=== PATIENT | female | born 1990 | race Hispanic/Latino ===

== ENCOUNTER 2020-05-15 18:20 | Inpatient (IN) | payer BC, OTHER ==
[~2020-05-15] VITALS: Ht 152.4 cm; Wt 70.3 kg
[2020-05-15 19:09] LABS: APPEARANCE,URINE CLOUDY (CLEAR); BILIRUBIN,URINE NEGATIVE (NEGATIVE); COLOR,URINE YELLOW (YELLOW); GLUCOSE, URINE (UA) NEGATIVE (NEGATIVE); KETONES,URINE >=80 mg/dL (NEGATIVE); LEUKOCYTE ESTERASE ,URINE SMALL (NEGATIVE); NITRATE,URINE NEGATIVE (NEGATIVE); OCCULT BLOOD,URINE MODERATE (NEGATIVE); PH,URINE 6.5 (5.0-8.0); PROTEIN,URINE NEGATIVE (NEGATIVE); UROBILINOGEN,URINE 0.2 mg/dL (0.2-1.0)
[2020-05-15] MEDS ORDERED: LACTATED RINGERS 1000ML 1,000 ML IV ONE (19:24)
[2020-05-15 19:26] LABS: HEMATOCRIT 39.8 % (36-48); MEAN CORPUSCULAR HEMOGLOBIN 32.1 pg (27.0-33.0); MEAN CORPUSCULAR HGB CONC 33.9 g/dL (32.0-36.0); MEAN CORPUSCULAR VOLUME 94.5 fL (79-99); RED BLOOD CELL COUNT(AUTO) 4.21 MIL/uL (4.00-5.50); RED CELL DISTRIBUTION WIDTH 13.5 % (11.0-15.5); WHITE BLOOD COUNT (AUTO) 19.2 K/uL (4.8-10.8)
[2020-05-15] MEDS ORDERED: LACTATED RINGERS 1000ML 1,000 ML IV SCH ×2 (19:30→20:45)
[2020-05-15] MEDS ORDERED: NALOXONE HCL 0.4 MG/1 ML ML IV PRN (19:30)
[2020-05-15] MEDS ORDERED: EPHEDRINE SULFATE 50 MG/ML AMPULE IVP PRN (19:30)
[2020-05-15] MEDS ORDERED: OXYTOCIN-LR 20 UNITS/1000 ML 1,000 ML IV SCH (19:30)
[2020-05-15] MEDS ORDERED: ROPIVACAINE 0.2% 100ML VIAL 100 ML EP SCH (19:30)
[2020-05-15] MEDS ORDERED: LACTATED RINGERS 1000ML 1,000 ML IV PRN (19:30)
[2020-05-15] MEDS ORDERED: LACTATED RINGERS 500 ML 500 ML IV PRN (19:30)
[2020-05-15 19:31] LABS: BACTERIA,URINE Moderate /HPF (None Seen); RBC,URINE 0-1 /HPF (0-1); SQUAMOUS EPITHELIAL CELL,UR Moderate /HPF (0-2)
[2020-05-15] MEDS ORDERED: FENTANYL CITRATE PF 50 MCG/1 ML 2ML VIAL ONE ×2 (19:40→21:24)
[2020-05-15] MEDS ORDERED: AMPICILLIN 2GM+NS 100ML 100 ML IV ONE (19:40)
[2020-05-15] MEDS ORDERED: AMPICILLIN 2GM+NS 100ML 100 ML IV SCH (19:45)
[2020-05-15] MEDS ORDERED: CEFAZOLIN SODIUM 1 GM VIAL ONE (20:45)
[2020-05-15] MEDS ORDERED: CEFAZOLIN SODIUM 1 GM VIAL IVP PRN (20:45)
[2020-05-15] MEDS ORDERED: CALDOLOR 800MG+NS 250ML 250 ML IV PRN (20:45)
[2020-05-15] MEDS ORDERED: LIDOCAINE 2%-EPI 1:200,000 20 ML VIAL IJ ONE (20:58)
[2020-05-15] MEDS ORDERED: ONDANSETRON 4MG INJ ONE (21:18)
[2020-05-15] MEDS ORDERED: OXYTOCIN 10 USP UNITS/ML ONE (21:19)
[2020-05-15] MEDS ORDERED: MIDAZOLAM HCL 1 MG/ML 2ML VIAL ONE (21:26)
[2020-05-15] MEDS ORDERED: MORPHINE PF 100MG/10ML AMP IV ONE (21:29)
[2020-05-15] MEDS ORDERED: DEXTROSE 5 %-0.45 % NACL 1,000 ML IV PRN (22:15)
[2020-05-15] MEDS ORDERED: 0.9%NACL 10ML VIAL IVP PRN (22:15)
[2020-05-15] MEDS ORDERED: OXYTOCIN-LR 20 UNITS/1000 ML 1,000 ML IV PRN (22:15)
[2020-05-15 23:40] LABS: HEMATOCRIT 36.5 % (36-48); MEAN CORPUSCULAR HEMOGLOBIN 31.9 pg (27.0-33.0); MEAN CORPUSCULAR HGB CONC 33.4 g/dL (32.0-36.0); MEAN CORPUSCULAR VOLUME 95.5 fL (79-99); RED BLOOD CELL COUNT(AUTO) 3.82 MIL/uL (4.00-5.50); RED CELL DISTRIBUTION WIDTH 13.3 % (11.0-15.5); WHITE BLOOD COUNT (AUTO) 20.7 K/uL (4.8-10.8)
[2020-05-15] MEDS: MEPERIDINE-PF 75 MG/ML SYG IM PRN (23:59)
[2020-05-15] MEDS: PROMETHAZINE HCL 25 MG/ML 1ML AMPULE IM PRN (23:59)
[2020-05-16] VITALS (8 sets, daily range): BP systolic 107–122; BP diastolic 59–72
[2020-05-16] MEDS: PROMETHAZINE HCL 25 MG/ML 1ML AMPULE IM PRN (05:59)
[2020-05-16] MEDS: MEPERIDINE-PF 75 MG/ML SYG IM PRN (05:59)
[2020-05-16] MEDS ORDERED: CALDOLOR 800MG+NS 250ML 250 ML IV SCH (06:15)
[2020-05-16 06:47] LABS: HEMATOCRIT 34.7 % (36-48); MEAN CORPUSCULAR HEMOGLOBIN 32.6 pg (27.0-33.0); MEAN CORPUSCULAR HGB CONC 34.3 g/dL (32.0-36.0); MEAN CORPUSCULAR VOLUME 95.1 fL (79-99); RED BLOOD CELL COUNT(AUTO) 3.65 MIL/uL (4.00-5.50); RED CELL DISTRIBUTION WIDTH 13.4 % (11.0-15.5); WHITE BLOOD COUNT (AUTO) 18.6 K/uL (4.8-10.8)
[2020-05-16 07:52] LABS: AMPHET/METH SCREEN,URINE NEGATIVE (NEGATIVE); BARBITURATE SCREEN, URINE NEGATIVE (NEGATIVE); BENZODIAZEPINES SCREEN,URINE NEGATIVE (NEGATIVE); CANNABINOID SCREEN,URINE NEGATIVE (NEGATIVE); COCAINE SCREEN,URINE NEGATIVE (NEGATIVE); OPIATE SCREEN,URINE NEGATIVE (NEGATIVE); PHENCYCLIDINE SCREEN,URINE NEGATIVE (NEGATIVE)
[2020-05-16] MEDS ORDERED: PREN1TAB80 PO (09:06)
[2020-05-16 10:00] LABS: RAPID PLASMA REAGIN NONREACTIVE (NONREACTIVE)
[2020-05-16] MEDS ORDERED: ACETAMINOPHEN WITH CODEINE 1 TAB TAB ONE (14:12)
[2020-05-16] MEDS ORDERED: LANOLIN 30GM OINTMENT TP PRN (14:15)
[2020-05-16] MEDS ORDERED: BISACODYL 10 MG SUPP.RECT RC PRN (14:15)
[2020-05-16] MEDS ORDERED: ACETAMINOPHEN 500 MG TABLET PO PRN (14:15)
[2020-05-16] MEDS ORDERED: HYDROCODONE/ACETAMINOPHEN 5/325 MG TAB PO PRN (14:15)
[2020-05-16] MEDS: ACETAMINOPHEN WITH CODEINE 1 TAB TAB PO PRN ×2 (14:24→19:52)
[2020-05-16] MEDS: DOCUSATE SODIUM 100 MG CAP PO SCH (21:45)
[2020-05-16] MEDS: SIMETHICONE 80 MG TAB.CHEW PO PRN (21:45)
[2020-05-16] MEDS: IBUPROFEN 600 MG TABLET PO PRN (21:46)
[2020-05-16] MEDS ORDERED: IBUPROFEN 800 MG TAB PO SCH (22:15)
[2020-05-17 03:55] VITALS: BP 113/61
[2020-05-17] MEDS: IBUPROFEN 600 MG TABLET PO PRN ×2 (04:15→11:04)
[2020-05-17] MEDS: ACETAMINOPHEN WITH CODEINE 1 TAB TAB PO PRN ×2 (06:50→15:59)
[2020-05-17 07:11] VITALS: BP 121/76
[2020-05-17] MEDS: DOCUSATE SODIUM 100 MG CAP PO SCH ×2 (08:23→20:57)
[2020-05-17] MEDS: SIMETHICONE 80 MG TAB.CHEW PO PRN ×2 (08:23→20:56)
[2020-05-17 11:26] VITALS: BP 120/68
[2020-05-17 13:14] LABS: HEPATITIS Bs ANTIGEN SCREEN P Negative (Negative)
[2020-05-17 17:10] VITALS: BP 116/82
[2020-05-17 19:32] VITALS: BP 134/83
[2020-05-17 23:25] VITALS: BP 130/80
[2020-05-18 03:47] VITALS: BP 127/78
[2020-05-18] MEDS: ACETAMINOPHEN WITH CODEINE 1 TAB TAB PO PRN ×2 (03:48→08:22)
[2020-05-18 07:16] VITALS: BP 119/74
[2020-05-18] MEDS: DOCUSATE SODIUM 100 MG CAP PO SCH (08:20)
[2020-05-18] MEDS: SIMETHICONE 80 MG TAB.CHEW PO PRN ×2 (08:20→12:03)
[2020-05-18 11:48] VITALS: BP 121/68
[2020-05-18] MEDS: IBUPROFEN 600 MG TABLET PO PRN (12:02)
== END 2020-05-18 13:05 | disposition home or self-care (01) | DRG 788 ==
LOC: EDH 18:20 → OBSVTOIN 18:21 → LDH 18:21 → WSH 05-16 08:45
PROVIDERS: ADMIT Specialist; ATTEND Specialist
PROC: 10D00Z1 Extraction of Products of Conception, Low, Open Approach (ICD-10-PCS; principal; 2020-05-15 20:46)
DX: O77.0 Labor and delivery complicated by meconium in amniotic fluid (principal); Z3A.38 38 weeks gestation of pregnancy; Z37.0 Single live birth; N73.6 Female pelvic peritoneal adhesions (postinfective); O69.81X0 Labor and delivery complicated by cord around neck, without compression, not applicable or unspecified; O99.62 Diseases of the digestive system complicating childbirth
CPT/HCPCS: 36415; 59510; 80305; 81001; 83605; 84443; 85027; 86592; 86701; 86850; 86900; 86901; 87088; 87340; 87390; 93005; A4314; A4344; G0378; J0290; J0690; J1741; J2175; J2250; J2274; J2405; J2550; J2590; J3010; J3490; J7042; J7120

== ENCOUNTER 2020-06-30 16:33 | Emergency (ER) | payer BC ==
[~2020-06-30 16:33] MED LIST: PREN1TAB80 PO
[2020-06-30 17:24] LABS: APPEARANCE,URINE Clear (CLEAR); BILIRUBIN,URINE Negative (NEGATIVE); COLOR,URINE Yellow (YELLOW); GLUCOSE, URINE (UA) Negative (NEGATIVE); KETONES,URINE Negative (NEGATIVE); LEUKOCYTE ESTERASE ,URINE Negative (NEGATIVE); NITRATE,URINE Negative (NEGATIVE); OCCULT BLOOD,URINE Trace (NEGATIVE); PH,URINE 5.5 (5.0-8.0); PROTEIN,URINE Negative (NEGATIVE)
[2020-06-30 17:26] LABS: HCG,QUAL RESULT NEGATIVE (NEGATIVE)
[2020-06-30 17:34] LABS: BACTERIA,URINE Rare /HPF (None Seen); RBC,URINE 0-1 /HPF (0-1); SQUAMOUS EPITHELIAL CELL,UR Few /HPF (0-2); WBC,URINE 0-1 /HPF (0-1)
[2020-06-30 17:47] LABS: BASOPHILS % (AUTO) 0.2 % (0.0-5.0); EOSINOPHILS % (AUTO) 0.6 % (0.0-8.0); HEMATOCRIT 43.2 % (36-48); LYMPHOCYTES % (AUTO) 18.5 % (21.0-51.0); MEAN CORPUSCULAR HEMOGLOBIN 30.7 pg (27.0-33.0); MEAN CORPUSCULAR HGB CONC 32.9 g/dL (32.0-36.0); MEAN CORPUSCULAR VOLUME 93.3 fL (79-99); MONOCYTES % (AUTO) 6.5 % (3.0-13.0); NEUTROPHILS % (AUTO) 73.9 % (40.0-77.0); PLATELET COUNT (AUTO) 264 K/uL (130-400); RED BLOOD CELL COUNT(AUTO) 4.63 MIL/uL (4.00-5.50); RED CELL DISTRIBUTION WIDTH 12.9 % (11.0-15.5); WHITE BLOOD COUNT (AUTO) 8.8 K/uL (4.8-10.8)
[2020-06-30 17:59] LABS: CREATININE 0.7 mg/dL (0.5-1.5); POTASSIUM 3.7 mmol/L (3.5-5.1)
[2020-06-30 18:03] LABS: ALBUMIN 3.9 g/dL (3.5-5.0); BILIRUBIN,TOTAL 0.7 mg/dL (0.2-1.0); TOTAL PROTEIN, SERUM 7.8 g/dL (6.0-8.3)
== END 2020-06-30 18:28 | disposition home or self-care (01) ==
LOC: EDH 16:33
DX: K64.9 Unspecified hemorrhoids (principal); K92.1 Melena; Z98.890 Other specified postprocedural states
CPT/HCPCS: 36415; 80053; 81001; 81025; 85025